=== PATIENT | female | born 1970 ===

== ENCOUNTER 2017-01-22 13:43 | Emergency (ER) | payer OTHER ==
[2017-01-22 13:49] VITALS: RESP 20
--- NOTE | 2017-01-22 14:07 | C.PDOC ---
History Of Present Illness 46 y/o female presents to the ED for evaluation of left ankle pain. Patient states she twisted her left ankle while walking 3 days ago, and is complaining of pain to lateral aspect of left ankle. Notes pain is worse with ambulation. Otherwise, denies any injury, trauma, sensory changes, or fever. Time Seen by Provider: 01/22/17 13:53 Chief Complaint (Nursing): Lower Extremity Problem/Injury History Per: Patient History/Exam Limitations: no limitations Onset/Duration Of Symptoms: Days (3) Current Symptoms Are (Timing): Still Present Recent travel outside of the [place]: No Additional History Per: Patient - Ankle/Foot Description Of Injury: Twisted Past Medical History Reviewed: Historical Data, Nursing Documentation, Vital Signs Vital Signs: Last Vital Signs Temp 98.4 F 01/22/17 15:35 Pulse 58 L 01/22/17 15:35 Resp 20 01/22/17 15:35 BP 101/64 01/22/17 15:35 Pulse Ox 98 01/22/17 17:25 Family History: States: Unknown Family Hx - Social History Hx Alcohol Use: No Hx Substance Use: No - Immunization History Hx Tetanus Toxoid Vaccination: No Hx Influenza Vaccination: Yes (2016) Hx Pneumococcal Vaccination: No Review Of Systems Except As Marked, All Systems Reviewed And Found Negative. Constitutional: Negative for: Fever, Chills Musculoskeletal: Positive for: Foot Pain (left ankle pain) Skin: Negative for: Rash, Bruising Neurological: Negative for: Weakness, Numbness Physical Exam - Physical Exam Appears: Non-toxic, No Acute Distress Skin: Normal Color, Warm, Dry, No Other Head: Atraumatic, Normacephalic Eye(s): bilateral: Normal Inspection Chest: Symmetrical Cardiovascular: Rhythm Regular, No Murmur Respiratory: Normal Breath Sounds, No Rales, No Rhonchi, No Wheezing Extremity: Normal ROM (FROM of left foot), Tenderness (tenderness to lateral malleolus upon palpation), Capillary Refill (< 2 sec.), No Deformity, Swelling ( mild swelling to lateral malleolus) Extremity: Bilateral: Normal Color And Temperature, Normal ROM Pulses: Left Dorsalis Pedis: Normal, Right Dorsalis Pedis: Normal Neurological/Psych: Oriented x3, Normal Speech, Normal Cognition, Normal Motor, Normal Sensation ED Course And Treatment O2 Sat by Pulse Oximetry: 98 (on RA) Pulse Ox Interpretation: Normal - Other Rad Left ankle x-ray X-Ray: Interpreted by Me, Viewed By Me Interpretation: No acute fracture or dislocation. Progress Note: Left ankle x-ray ordered and reviewed. Patient was given Tylenol. Freddy wrap and air cast applied. Crutches were provided. Patient is being discharged home and is instructed to follow up with Orthopedist in 1-2 days. Disposition Counseled Patient/Family Regarding: Diagnosis, Need For Followup, Rx Given - Disposition Referrals: Ab Ambriz III, MD [Staff Provider] - [facility] [Outside] [facility] [Outside] Disposition: HOME/ ROUTINE Disposition Time: 15:00 Condition: STABLE Additional Instructions: SEGUIMIENTO CON ORTOPEDIA O PODIATRIA DENTRO DE 1 SEMANA ELEVAR LA PIERNA TANTO POSIBLE USE LOS MEDICAMENTOS QUE STEVIE NECESARIOS PARA EL DOLOR VUELVA A LA JEAN DE EMERGENCIA SI HILDA SNTOMAS EMPEORARAN Prescriptions: Naproxen [Naprosyn Tab] 375 mg PO BID PRN #25 tab PRN Reason: pain Instructions: Ankle Sprain (ED), Ankle Stirrup Splint (ED) Forms: Work Excuse Print Language: AMHARIC - Clinical Impression Clinical Impression: Left ankle sprain - Scribe Statement The provider has reviewed the documentation as recorded by the Scribbob Bennett All medical record entries made by the Scribe were at my direction and personally dictated by me. I have reviewed the chart and agree that the record accurately reflects my personal performance of the history, physical exam, medical decision making, and the department course for this patient. I have also personally directed, reviewed, and agree with the discharge instructions and disposition.
--- NOTE | 2017-01-22 15:13 | RAD ---
PROCEDURE: Left ankle dated 01/22/2017 HISTORY: LEFT ANKLE INJURY COMPARISON: None FINDINGS: BONES: No evidence of acute displaced fracture nor dislocation. Osseous structures appear intact. Talar dome intact. . Very tiny early posterior calcaneal enthesophyte formation noted. JOINTS: Ankle mortise maintained No significant osteoarthritis. SOFT TISSUES: There is mild soft tissue swelling lateral greater than medial OTHER FINDINGS: None. IMPRESSION: No evidence of acute displaced fracture nor dislocation. . Mild soft tissue swelling as above.
[2017-01-22 15:36] VITALS: BP 101/64; PULSE 58; TEMP 98.4
[2017-01-22 17:18] VITALS: O2SAT 98
== END 2017-01-22 15:34 | disposition home or self-care (01) ==
LOC: C.ER 13:43
DX: S93.402A Sprain of unspecified ligament of left ankle, initial encounter (principal); X50.1XXA Overexertion from prolonged static or awkward postures, initial encounter; Y93.01 Activity, walking, marching and hiking; Y92.410 Unspecified street and highway as the place of occurrence of the external cause
CPT/HCPCS: 73610; 97116; 97161; 99284; G8978; G8979; G8980